=== PATIENT | female | born 1960 | race Caucasian/White ===

== ENCOUNTER → 2018-01-27 | Outpatient (CLI) | payer OTHER ==
[~2018-01-27] MED LIST: ALP25 PO; CELE-1 PO; CHOL100094 PO; CLOB15OI16 TP; MELA1TAB27 PO; MULT-1335 PO; PER PO; TAMO20TA19 PO; VAL500 PO; VENL75TA PO
--- NOTE | 2018-01-27 11:59 | RADIOLOGY IMAGING REPORT ---
[facility] PATIENT NAME: Tania Wan : 1960 MR: [id number] V: [id number] EXAM DATE: ORDERING PHYSICIAN: MARÍA ELENA NICOLE TECHNOLOGIST: Location: [facility] Patient: Tania Wan : 1960 Visit/Account:[id number] Date of Sevice: 01/27/2018 Exam type: SOFT TISSUE NON-SPECIFIC History: History of breast cancer, lump left posterior neck x5 months Comparison: None. Findings: There is a 2 x 2 x 1 mm tiny calcification just beneath the skin in the posterior left-sided the neck in location of patient's palpable findings. No associated vascular mass is seen. IMPRESSION: 1. 2 x 2 x 1 mm tiny calcination just make the skin posterior left-sided the neck in location of pat ient's palpable findings. This appears to represent an incidental calcification with no associated s oft tissue mass or increased vascularity Report Dictated By: Nidia Wiseman MD at 01/27/2018 11:55 AM Report E-Signed By: Nidia Wiseman MD at 01/27/2018 11:56 AM WSN:[id number]
== END ==
LOC: US 02:17
PROVIDERS: ATTEND Surgery
DX: R22.1 Localized swelling, mass and lump, neck (principal); Z80.3 Family history of malignant neoplasm of breast
CPT/HCPCS: 76999

== ENCOUNTER → 2018-09-21 | Outpatient (CLI) | payer OTHER ==
--- NOTE | 2018-09-22 08:23 | RADIOLOGY IMAGING REPORT ---
FACILITY: [facility] [place] PATIENT NAME: CONY THOMAS : [id number] MR: [id number] V: [id number] EXAM DATE: ORDERING PHYSICIAN: EULALIA LUNA TECHNOLOGIST: Ora Mckeon PROCEDURE: MAMMOGRAM SCREENING LEFT UNILATERAL WITH CAD ASSISTED INTERPRETATION & 3D TOMOSYNTHESIS COMPARISON: Prior Left mammograms 05/20/17, 03/24/16, 03/13/15, 12/13/13, 12/03/12. INDICATIONS: screening left FINDINGS: The Left breast is heterogeneously dense which can obscure small masses. The parenchymal pattern has remained stable allowing for difference in mammographic technique & patient positioning. There is a subpectoral Left breast implant in place with no evidence of implant rupture or leakage. DIAGNOSTIC CATEGORY 2--BENIGN FINDING. RECOMMENDATIONS: ROUTINE MAMMOGRAM AND CLINICAL EVALUATION. IMPRESSION: BIRADS 2: Benign finding. No significant abnormality of the Left breast is seen. Dictated by: Nidia Wiseman M.D. on 09/21/2018 at 15:29 Transcribed by: MINNA on 09/21/2018 at 15:37 Approved by: Nidia Wiseman M.D. on 09/22/2018 at 8:22 [facility]
== END ==
LOC: MAMO 01:22
PROVIDERS: ATTEND Family Medicine
DX: Z12.31 Encounter for screening mammogram for malignant neoplasm of breast (principal); Z98.82 Breast implant status
CPT/HCPCS: 77063; 77067